=== PATIENT | male | born 2000 | race Caucasian/White ===

== ENCOUNTER 2019-09-10 16:54 | Emergency (ER) | payer OTHER, MEDICAID, SELFPAY ==
[2019-09-10 16:58] VITALS: BP 152/89; PULSE 94; RESP 20; TEMP 36.4; O2SAT 94
[2019-09-10 17:16] VITALS: BP 124/64
--- NOTE | 2019-09-10 17:23 | ED.GENADUL_ITS ---
Discharge Plan Disposition Patient Disposition: HOME Condition: Stable Discharge Details Chief Complaint: Laceration Clinical Impression: Laceration of finger of right hand Primary Care Provider: Nicole Win ED Provider: Tom Christian Home Meds and New Rx's Prescriptions: No Action No Known Home Meds RF: 0 Discharge Instructions Instructions: Finger Laceration (ED) Additional Instructions: Keep dressing intact for the next 2 days. Change dressing daily thereafter. Monitor for signs of infection including increased warmth, swelling, pain, discharge or redness. When reapplying dressing be sure to use sterile material. Please return to the ED for wound assessment and suture removal in 12 days. Plan to the ED sooner for any worsening or new concerning symptoms. Medical Decision Making 1726 --18-year-old male here with laceration distal fourth and fifth digits right hand. Patient is neurovascular intact distally. Flexor tendons intact. -- X-ray of the hand was reviewed and interpreted by me: No foreign body. --Block performed after verbal consent. Wounds irrigated with copious sterile saline and repaired. Wounds reapproximated and hemostasis achieved. Sterile dressing applied. Patient was informed of his elevated blood pressure need to follow-up with PCP. He was also informed of incidental finding noted on x-ray by radiology of possible ulnar styloid fracture. Patient has no recent trauma and suspect this is chronic. Usual and customary discharge instructions were provided the patient. [facility] General Mode of arrival: ambulatory . Date/Time Provider Initiated Documentation: 09/10/19 17:21 . Limitations to Documentation: no limitations . Information obtained by: patient . HPI Narrative: 18-year-old male here with chief complaint of laceration. Patient notes he cut his right fourth and fifth digits on sheet-metal just prior to arrival. Wound is been bleeding. Bleeding improved with dressing. He has associated pain in the area. No associated numbness or weakness. No other injury. Related Data Home Medications Medication Instructions Recorded Confirmed Unknown [No Known Home Meds] 09/10/19 09/10/19 Allergies Allergy/AdvReac Type Severity Reaction Status Date / Time No Known Allergies Allergy Unverified 09/10/19 17:00 General Stated Complaint: Laceration CLARENCE: 4 Review of Systems Integumentary/Breasts Skin/Breast: Reports as per HPI Neurologic Neurologic: Reports as per HPI [facility] Social History Smoking/Tobacco Use Status: Never Alcohol Intake: never Drug use: Never Substance use type: does not use Do you feel safe at home: Yes Do you feel safe in your relationship?: Yes Exam Const General: cooperative and healthy appearing Cardio Other: First cap refill right fourth and fifth digits distally Skin Trauma: laceration Other: 1.5 cm laceration distal fifth digit palmar transverse across finger, 1.5 cm laceration distal fourth digit, transverse across finger Extrem Right upper extremity: hand Details: normal capillary refill, neuromotor exam normal, neurosensory exam normal and tendon exam normal Course Vital Signs Vital signs: Vital Signs Temperature 36.4 C L 09/10/19 16:58 Pulse 94 H 09/10/19 16:58 Respiratory Rate 09/10/19 16:58 Blood Pressure 152/89 H 09/10/19 16:58 Pulse Oximetry 94 L 09/10/19 16:58 Temperature 36.4 C L 09/10/19 16:58 Temperature Source Skin 09/10/19 16:58 Pulse 94 H 09/10/19 16:58 Respiratory Rate 09/10/19 16:58 Respiratory Effort Non-Labored 09/10/19 17:00 Blood Pressure 124/64 09/10/19 17:16 Blood Pressure Position Sitting 09/10/19 16:58 Pulse Oximetry 94 L 09/10/19 16:58 Oxygen Delivery Method Room Air 09/10/19 16:58 Oxygen Flow Rate 0 09/10/19 16:58 Pain Level 2 09/10/19 16:58 Procedures Laceration Laceration 1: Site: hand (Fourth digit distal) Side (If applicable): right Size (cm): 1.5 Description: linear Depth: simple, single layer Local Anesthetic: other anesthetic (Digital block) Pre-repair: wound explored, irrigated extensively and deep structures intact Skin layer closed with: other (Prolene) Size (cm): 5-0 Number of sutures: 4 Technique: simple, interrupted Laceration 2: Site: hand (Fifth digit distal) Side (If applicable): right Size (cm): 1.5 Description: linear Depth: simple, single layer Local Anesthetic: other anesthetic (Digital block) Pre-repair: wound explored, irrigated extensively and deep structures intact Skin layer closed with: other (Prolene) Size (cm): 5-0 Number of sutures: 4 Technique: simple, interrupted Nerve Block Nerve Block 1: Time out performed: Yes Local Anesthetic: Lidocaine 1% Amount of anesthesia used (mL): 8 Side: right Nerve Blocks: digital (Fourth and fifth (4 mL each finger)) Procedure Successful: Yes Patient Tolerated Procedure: well Complications: none
--- NOTE | 2019-09-10 17:31 | DI.RAD_ITS ---
EXAM: XR HAND RT COMPLETE CLINICAL HISTORY: laceration. TECHNIQUE: 2D digital imaging was performed. COMPARISON: CR RIGHT HAND COMPLETE from 06/26/2012 CR LEFT HAND COMPLETE from 11/24/2015 FINDINGS: BONES: No acute fracture is present. No bony destructive lesion is seen. There is a well-circumscribe d osseous density at the tip of the ulnar styloid process most suggestive of an old injury. JOINTS: No dislocation present. SOFT TISSUE: Normal. IMPRESSION: Unremarkable radiographs of the right hand. DATA REPOSITORY: RADIATION DOSE DELIVERED:
--- NOTE | 2019-09-10 17:37 | DI.VRAD_ITS ---
Addendum created by Onesimo Baldwin MD on 09/10/2019 5:37:42 PM EDT Possible ulnar styloid fracture, age undetermined. Clinically correlate. Initial report created on 09/10/2019 5:37:06 PM EDT PROCEDURE INFORMATION: Exam: XR Right Hand Exam date and time: 09/10/2019 5:22 PM Age: 18 years old Clinical indication: Other: Laceration TECHNIQUE: Imaging protocol: XR Right hand. Views: 3 or more views. COMPARISON: CR RIGHT WRIST COMPLETE 10/16/2012 1:05 PM FINDINGS: Bones/joints: Normal. Soft tissues: Normal. IMPRESSION: No acute findings. Dictated and Authenticated by: Onesimo Baldwin MD. Ordering:ANGIE Santos MD
--- NOTE | 2019-09-10 23:22 | NUR.NOTE ---
referral faxed to patient PCP for follow up care Nursing Note:
== END 2019-09-10 18:40 | disposition home or self-care (01) ==
LOC: ER 18:29
PROVIDERS: Emergency Provider Student in an Organized Health Care Education/Training Program; PCP Family Medicine
DX: S61.216A Laceration without foreign body of right little finger without damage to nail, initial encounter (principal); S61.214A Laceration without foreign body of right ring finger without damage to nail, initial encounter; W26.8XXA Contact with other sharp object(s), not elsewhere classified, initial encounter; R03.0 Elevated blood-pressure reading, without diagnosis of hypertension
CPT/HCPCS: 12002; 99283; 73130; 99281

== ENCOUNTER 2019-10-02 10:24 | Outpatient (CLI) | payer OTHER, MEDICAID, SELFPAY ==
[2019-10-04 07:32] LABS: COVID-19 RT-PCR Result NEGATIVE (Negative)
== END 2019-10-02 10:44 ==
PROVIDERS: PCP Family Medicine; Visit Provider Family Medicine
DX: Z11.59 Encounter for screening for other viral diseases (principal)
CPT/HCPCS: U0003

== ENCOUNTER 2020-02-18 15:35 | Outpatient (REF) | payer MEDICAID, SELFPAY ==
[2020-02-21 22:23] LABS: Patient Race White; SARS-CoV-2 RNA Undetected (Undetected); SARS-CoV-2 Specimen Source Nasal
== END 2020-02-18 15:55 ==
LOC: NCHCN 15:35
PROVIDERS: PCP Family Medicine; Visit Provider Family Medicine
DX: Z20.828 Contact with and (suspected) exposure to other viral communicable diseases (principal)
CPT/HCPCS: U0003

== ENCOUNTER 2024-04-29 14:43 | Outpatient (REF) | payer BC, SELFPAY ==
[2024-04-29 21:08] LABS: Abs Immature Grans 0.03 10^3/uL (0.0-0.06); Absolute Basophil Count 0.05 10^3/uL (0.0-0.2); Absolute Lymphocyte Count 1.74 10^3/uL (1.2-3.4); Absolute Monocyte Count 0.81 10^3/uL (0.1-0.8); Absolute Neutrophil Count 3.13 10^3/uL (1.2-6.7); Basophils % 0.8 %; Eosinophils % 6.5 %; HCT 46.6 % (40.0-50.0); HGB 16.3 g/dL (13.5-17.5); Immature Grans % 0.5 %; Lymphocytes % 28.2 %; MCH 30.1 pg (27.0-33.0); MCV 86 fL (80-95); MPV 11.1 fL (8.0-11.0); Monocytes % 13.1 %; Neutrophils % 50.9 %; Platelet Count 207 10^3/uL (130-400); RBC 5.41 10^6/uL (4.36-5.78); RDW 12.7 % (11.8-14.1); RDW-SD 39.6 fL; WBC 6.16 10^3/uL (4.4-10.8)
[2024-04-29 21:28] LABS: ALT 34 U/L (16-63); AST 19 U/L (15-37); Albumin 4.1 g/dL (3.4-5.0); Alkaline Phosphatase 91 U/L (46-116); Anion Gap 7.9 mmol/L (3-11); BUN 23 mg/dL (7-18); Bilirubin, Total 1.02 mg/dL (0.2-1.0); CO2 30.1 mmol/L (21.0-32.0); Calcium 9.2 mg/dL (8.5-10.1); Calculated LDL 90 mg/dL (<100); Chloride 108 mmol/L (98-107); Cholesterol 191 mg/dL (<200); Estimated GFR 107.12 (mL/min/1.73m2); Glucose 83 mg/dL (74-106); HDL Cholesterol 78 mg/dL (40-60); Potassium 4.1 mmol/L (3.5-5.1); Sodium 146 mmol/L (136-145); TSH (W/Ref FT4) 3.83 uIU/mL (0.36-3.74); Total Protein 7.2 g/dL (6.4-8.2); Triglyceride 116 mg/dL (<150)
[2024-05-01 10:25] LABS: Lyme Ab w Rflx to Lyme Confirm Negative (Negative)
[2024-05-03 20:44] LABS: Anaplasma phagocytophilum Negative (Negative); B. miyamotoi PCR Negative (Negative); Babesia divergens/MO-1 Negative (Negative); Babesia duncani Negative (Negative); Babesia microti Negative (Negative); Ehrlichia chaffeensis Negative (Negative); Ehrlichia ewingii/canis Negative (Negative); Ehrlichia muris eauclairensis Negative (Negative)
== END 2024-04-29 14:44 | disposition home or self-care (01) ==
LOC: NCHCN 14:43
PROVIDERS: PCP Family Medicine; Visit Provider Family Medicine
DX: Z00.00 Encounter for general adult medical examination without abnormal findings (principal)
CPT/HCPCS: 80053; 80061; 87798; 84439; 84443; 85025; 86618